=== PATIENT | female | born 1975 | race Asian ===

== ENCOUNTER 2018-11-12 12:23 | Emergency (ER) | payer MEDICAID, OTHER ==
[~2018-11-12] VITALS: Ht 132.1 cm; Wt 59.0 kg
--- NOTE | 2018-11-12 12:52 | PHYS DOC ---
Past Medical History Past Medical History: Diabetes-Type II, Hypotension Past Surgical History: Other Additional Past Surgical Histo: "" Alcohol Use: None Drug Use: None Adult General Chief Complaint Chief Complaint: HYPERTENSION HPI HPI Patient is a 42 year old female who presents with high blood pressure. The patient states she had an episode at home aren't she felt dizzy and lightheaded. She checked her blood pressure and noted the systolic to be over 200. She does take blood pressure medication every day but does not know what the names of them are. She endorses compliance. No chest pain or shortness of breath. Her symptoms have improved since coming to the ER. No recent illness. No recent travel. No dyspnea with exertion or worsening orthopnea. No fever, chills, cough. Review of Systems Review of Systems Constitutional: Denies fever or chills Eyes: Denies change in visual acuity HENT: Denies nasal congestion or sore throat Respiratory: Denies cough or shortness of breath Cardiovascular: No additional information not addressed in HPI GI: Denies abdominal pain : Denies dysuria or hematuria Musculoskeletal: Denies back pain Integument: Denies rash or skin lesions Neurologic: Denies headache, focal weakness or sensory changes All other systems were reviewed and found to be within normal limits, except as documented in this note. Allergies Allergies Allergies Coded Allergies Type Severity Reaction Last Updated Verified No Known Drug Allergies 04/21/14 No Physical Exam Physical Exam Constitutional: Well developed, well nourished, no acute distress, non-toxic appearance HENT: Normocephalic, atraumatic, bilateral external ears normal, oropharynx moist Eyes: PERRLA, EOMI, conjunctiva normal Neck: Normal range of motion, no tenderness Cardiovascular:Heart rate regular rhythm, no murmur Lungs & Thorax: Bilateral breath sounds clear to auscultation Abdomen: Bowel sounds normal, soft, no tenderness Skin: Warm, dry, no erythema Extremities: No edema Neurologic: Alert and oriented X 3, normal motor function Psychologic: Affect normal Current Patient Data Vital Signs Vital Signs Date Time Temp Pulse Resp B/P (MAP) Pulse Ox O2 Delivery O2 Flow Rate FiO2 11/12/18 15:30 80 21 97 11/12/18 12:35 98.6 192/101 (131) Room Air 98.6 Lab Values Laboratory Tests Test 11/12/18 13:05 11/12/18 13:30 12/18/18 14:15 White Blood Count 12.3 x10^3/uL (4.0-11.0) H Red Blood Count 4.57 x10^6/uL (3.50-5.40) Hemoglobin 9.2 g/dL (12.0-15.5) L Hematocrit 28.4 % (36.0-47.0) L Mean Corpuscular Volume 62 fL (79-100) L Mean Corpuscular Hemoglobin 20 pg (25-35) L Mean Corpuscular Hemoglobin Concent 32 g/dL (31-37) Red Cell Distribution Width 17.5 % (11.5-14.5) H Platelet Count 423 x10^3/uL (140-400) H Neutrophils (%) (Auto) 65 % (31-73) Lymphocytes (%) (Auto) 28 % (24-48) Monocytes (%) (Auto) 5 % (0-9) Eosinophils (%) (Auto) 2 % (0-3) Basophils (%) (Auto) 1 % (0-3) Neutrophils # (Auto) 7.9 x10^3uL (1.8-7.7) H Lymphocytes # (Auto) 3.4 x10^3/uL (1.0-4.8) Monocytes # (Auto) 0.5 x10^3/uL (0.0-1.1) Eosinophils # (Auto) 0.2 x10^3/uL (0.0-0.7) Basophils # (Auto) 0.1 x10^3/uL (0.0-0.2) Platelet Estimate Increased (ADEQUATE) Large Platelets Few Giant Platelets Occ Polychromasia Slight Hypochromasia Marked Anisocytosis Slight Microcytosis Marked Spherocytes Few Target Cells Few Sodium Level 138 mmol/L (136-145) Potassium Level 4.0 mmol/L (3.5-5.1) Chloride Level 103 mmol/L (98-107) Carbon Dioxide Level 27 mmol/L (21-32) Anion Gap 8 (6-14) Blood Urea Nitrogen 9 mg/dL (7-20) Creatinine 1.0 mg/dL (0.6-1.0) Estimated GFR (Cockcroft-Gault) 61.4 Glucose Level 314 mg/dL (70-99) H Calcium Level 9.7 mg/dL (8.5-10.1) Troponin I Quantitative < 0.017 ng/mL (0.000-0.055) JM-Wih-R-Type Natriuretic Peptide 84 pg/mL (0-124) Urine Collection Type Unknown Urine Color Yellow Urine Clarity Clear Urine pH 7.0 Urine Specific [place] 1.015 Urine Protein Negative mg/dL (NEG-TRACE) Urine Glucose (UA) >=1000 mg/dL (NEG) Urine Ketones (Stick) Negative mg/dL (NEG) Urine Blood Negative (NEG) Urine Nitrite Negative (NEG) Urine Bilirubin Negative (NEG) Urine Urobilinogen Dipstick 0.2 mg/dL (0.2 mg/dL) Urine Leukocyte Esterase Negative (NEG) Urine RBC 1-2 /HPF (0-2) Urine WBC 1-4 /HPF (0-4) Urine Squamous Epithelial Cells Many /LPF Urine Bacteria 0 /HPF (0-FEW) Laboratory Tests 11/12/18 13:05 Laboratory Tests 11/12/18 13:30 EKG EKG No STEMI Interpretation Time: 12:50 Radiology/Procedures Radiology/Procedures [] Course & Med Decision Making Course & Med Decision Making Pertinent Labs and Imaging studies reviewed. (See chart for details) Is evaluated immediately on arrival to her room. She is in no acute distress. Her subjective symptoms have improved since coming to the emergency department. Her current systolic blood pressure is 192. Her EKG does not reveal any acute findings. We'll check for signs of end organ damage with blood work and urinalysis and chest x-ray. Patient was evaluated for high blood pressure. Her blood pressure improved in the ER without intervention. Basic labs did not reveal evidence for end organ damage. The patient was feeling improved prior to discharge. She was advised to continue her current medical regimen and follow up with her primary care doctor or return to the ER for any new or worsening symptoms. Dragon Disclaimer Dragon Disclaimer This electronic medical record was generated, in whole or in part, using a voice recognition dictation system. Departure Departure Disposition: 01 HOME, SELF-CARE Condition: RADHA POLLARD DO Nov 12, 2018 12:52
[2018-11-12 13:17] LABS: BASO # 0.1 x10^3/uL (0.0-0.2); BASO % 1 % (0-3); EOS # 0.2 x10^3/uL (0.0-0.7); EOS % 2 % (0-3); HEMATOCRIT 28.4 % (36.0-47.0); HEMOGLOBIN 9.2 g/dL (12.0-15.5); LYMPH # 3.4 x10^3/uL (1.0-4.8); LYMPH % 28 % (24-48); MEAN CORPUSCULAR HEMOGLOBIN 20 pg (25-35); MEAN CORPUSCULAR HGB CONC 32 g/dL (31-37); MEAN CORPUSCULAR VOLUME 62 fL (79-100); MONO # 0.5 x10^3/uL (0.0-1.1); MONO % 5 % (0-9); NEUT # 7.9 x10^3uL (1.8-7.7); NEUT % 65 % (31-73); PLATELET COUNT 423 x10^3/uL (140-400); RED BLOOD COUNT 4.57 x10^6/uL (3.50-5.40); RED CELL DISTRIBUTION WIDTH 17.5 % (11.5-14.5); WHITE BLOOD COUNT 12.3 x10^3/uL (4.0-11.0)
--- NOTE | 2018-11-12 13:39 | EKG ---
[facility] [address] [place] [address] Test Date: 2018-11-12 Test Time: 12:48:00 Pat Name: RUSSELL TOBIAS Department: Room: Gender: F Analytical Lab Technician: : 1975 Requested By: RADHA MORA Order Number: [id number] Reading MD: Alberto Oconnor Measurements Intervals [place] Rate: 83 P: 13 IA: 128 QRS: 18 QRSD: 76 T: 20 QT: 350 QTc: 416 Interpretive Statements SINUS RHYTHM Electronically Signed On 11-13-2018 8:46:56 SCIENTIFIC ADVISOR by Alberto Oconnor
[2018-11-12 13:51] LABS: CALCIUM 9.7 mg/dL (8.5-10.1); GFR 61.4
[2018-11-12 14:37] LABS: BILIRUBIN,URINE NEGATIVE (NEG); CLARITY,URINE CLEAR; COLOR,URINE YELLOW; NITRITE,URINE NEGATIVE (NEG); PROTEIN,URINE NEGATIVE (NEG-TRACE); UROBILINOGEN,URINE 0.2 mg/dL (0.2 mg/dL)
[2018-11-12 14:47] LABS: BACTERIA,URINE 0 /HPF (0-FEW); SQUAMOUS EPITHELIAL CELL,UR MANY /LPF
[2018-11-12 14:59] LABS: ANISOCYTOSIS SLIGHT; HYPOCHROMIA MARKED; MICROCYTOSIS MARKED; PLT ESTIMATE INCREASED (ADEQUATE); POLYCHROMASIA SLIGHT; SPHEROCYTES FEW; TARGET CELLS FEW
[2018-11-12 15:30] VITALS: BP 168/79
== END 2018-11-12 15:45 | disposition home or self-care (01) ==
LOC: ER 12:23
DX: I10 Essential (primary) hypertension (principal); R42 Dizziness and giddiness; E11.9 Type 2 diabetes mellitus without complications
CPT/HCPCS: 36415; 80048; 81001; 83880; 84484; 85025; 93005; 99284

== ENCOUNTER 2019-05-22 15:39 | Emergency (ER) | payer MEDICAID ==
[~2019-05-22] VITALS: Ht 154.9 cm; Wt 59.0 kg
--- NOTE | 2019-05-22 16:13 | PHYS DOC ---
Past Medical History Past Medical History: Diabetes-Type II, Hypertension, Hypotension, Migraines (LORENASAILAJA Gonzalez APRN) Past Surgical History: Other Additional Past Surgical Histo: "" (MARYLOUSAILAJA BONILLA APRN) Alcohol Use: None Drug Use: None (CEDRICKSAILAJA SCHMIDT) Adult General Chief Complaint Chief Complaint: HEADACHE HPI HPI Patient is a 43 year old female with a history of diabetes type 2, hyperte nsion, migraine headaches, who presents to the ED today complaining a throbbing 7 out of 10 right-sided migraine headache that began this morning. Patient is also complaining of an episode of nausea and vomiting. Denies any fever. Denies any neck pain. Denies this being the worst headache in her life. She states she's had similar headaches before. She states she ran out of her blood pressure medicines a couple days ago. She is supposed to be on lisinopril. Patient's daughter interpreted for her eyak language (SAILAJA PHILIP APRN) Review of Systems Review of Systems Constitutional: Denies fever or chills [] Eyes: Denies change in visual acuity, redness, or eye pain [] HENT: Denies nasal congestion or sore throat [] Respiratory: Denies cough or shortness of breath [] Cardiovascular: No additional information not addressed in HPI [] GI: Reports nausea and vomiting. Denies abdominal pain, bloody stools or diarrhea [] : Denies dysuria or hematuria [] Musculoskeletal: Denies back pain or joint pain [] Integument: Denies rash or skin lesions [] Neurologic: Reports migraine headache, denies focal weakness or sensory changes [] All other systems were reviewed and found to be within normal limits, except as documented in this note. (LORENASAILAJA Gonzalez APRN) Current Medications Current Medications Current Medications Medications (Trade) Dose Ordered Sig/Duarte Start Time Stop Time Status Last Admin Dose Admin Clonidine HCl (Catapres) 0.1 mg 1X ONCE 05/22/19 16:15 05/22/19 16:16 DC 05/22/19 16:24 0.1 MG Dexamethasone Sodium Phosphate (Decadron) 10 mg 1X ONCE 05/22/19 16:15 05/22/19 16:15 DC Diphenhydramine HCl (Benadryl) 25 mg 1X ONCE 05/22/19 16:15 05/22/19 16:16 DC 05/22/19 16:23 25 MG Ketorolac Tromethamine (Toradol Im) 60 mg 1X ONCE 05/22/19 16:15 05/22/19 16:16 DC 05/22/19 16:23 60 MG Prochlorperazine Edisylate (Compazine) 10 mg 1X ONCE 05/22/19 16:15 05/22/19 16:16 DC 05/22/19 16:23 10 MG (LILY DIXON DO) Allergies Allergies Allergies Coded Allergies Type Severity Reaction Last Updated Verified No Known Drug Allergies 04/21/14 No (LILY DIXON DO) Physical Exam Physical Exam Constitutional: Well developed, well nourished, no acute distress, non-toxic appearance. [] HENT: Normocephalic, atraumatic, bilateral external ears normal, oropharynx moist, no oral exudates, nose normal. [] Eyes: PERRLA, EOMI, conjunctiva normal, no discharge. [] Neck: Normal range of motion, no tenderness, supple, no stridor. [] Cardiovascular:Heart rate regular rhythm, no murmur [] Lungs & Thorax: Bilateral breath sounds clear to auscultation [] Abdomen: Bowel sounds normal, soft, no tenderness, no masses, no pulsatile masses. [] Skin: Warm, dry, no erythema, no rash. [] Back: No tenderness, no CVA tenderness. [] Extremities: No tenderness, no cyanosis, no clubbing, ROM intact, no edema. [] Neurologic: Alert and oriented X 3, normal motor function, normal sensory function, no focal deficits noted. Cranial nerves II through XII intact. Psychologic: Affect normal, judgement normal, mood normal. [] (SAILAJA PHILIP APRN) Current Patient Data Vital Signs Vital Signs Date Time Temp Pulse Resp B/P (MAP) Pulse Ox O2 Delivery O2 Flow Rate FiO2 05/22/19 16:24 79 162/77 05/22/19 15:40 98.1 18 99 Room Air 98.1 (LILY DIXON DO) EKG EKG [] (SAILAJA PHILIP APRN) Radiology/Procedures Radiology/Procedures [] (SAILAJA PHILIP APRN) Course & Med Decision Making Course & Med Decision Making Pertinent Labs and Imaging studies reviewed. (See chart for details) This is a 43-year-old female patient with history of migraine headaches as well as hypertension who presents to the ED today complaining of a right-sided headache with nausea and vomiting that began this morning. Patient states this headache is consistent with her migraine headaches. She unfortunately has been out of her blood pressure medications as well. She is supposed to be on lisinopril. There is nothing unusual about her headache today. BP 166/80 with a HR of 82 She'll be given a migraine cocktail. Given prescription for lisinopril and discharged to home. (SAILAJA PHILIP APRN) Dragon Disclaimer Dragon Disclaimer This electronic medical record was generated, in whole or in part, using a voice recognition dictation system. (SAILAJA PHILIP APRN) Departure Departure Impression: Primary Impression: Migraine headache Additional Impression: Hypertension Disposition: 01 HOME, SELF-CARE Condition: STABLE Referrals: CANDY BUTLER MD (PCP) follow up in 1 week Patient Instructions: Hypertension, Migraine Headache Additional Instructions: You were evaluated in the emergency room for high blood pressure and migraine headache. Take the prescribed lisinopril as ordered and the rest of the medications as ordered. Follow-up with your own doctor as soon as you can. Scripts Lisinopril (LISINOPRIL) 10 Mg Tablet 1 TAB PO DAILY, #30 TAB 5 Refills Prov: SAILAJA PHILIP APRN 05/22/19 Cyclobenzaprine Hcl (CYCLOBENZAPRINE HCL) 10 Mg Tablet 1 TAB PO TID, #30 TAB Prov: SAILAJA PHILIP APRN 05/22/19 Diclofenac Sodium (DICLOFENAC SODIUM) 50 Mg Tablet.dr 1 TAB PO BID, #20 TAB 0 Refills Prov: SAILAJA PHILIP APRN 05/22/19 Attending Signature Attending Signature I have reviewed the [employer]'s note and plan of care. I was available for consultation as needed during the patient's visit in the emergency department. I agree with the clinical impression, plan, and disposition. (LILY DIXON DO) Problem Qualifiers Primary Impression: Migraine headache Migraine type: without aura Status migrainosus presence: without status migrainosus Intractability: not intractable Qualified Codes: G43.009 - Migraine without aura, not intractable, without status migrainosus Additional Impression: Hypertension Hypertension type: unspecified secondary hypertension Qualified Codes: I15.9 - Secondary hypertension, unspecified SAILAJA PHILIP APRN May 22, 2019 16:13 LILY DIXON DO May 22, 2019 16:48
[2019-05-22] MEDS ORDERED: diphenhydrAMINE HCL 25 MG CAPSULE PO ONE (16:15)
[2019-05-22] MEDS ORDERED: DEXAMETHASONE SOD PHOS 20 MG/5 ML VIAL. IM ONE (16:15)
[2019-05-22] MEDS ORDERED: KETOROLAC 60 MG/2 ML VIAL. IM ONE (16:15)
[2019-05-22] MEDS ORDERED: cloNIDine HCL 0.1 MG TABLET PO ONE (16:15)
[2019-05-22] MEDS ORDERED: PROCHLORPERAZINE 10 MG/2 ML VIAL. IM ONE (16:15)
[2019-05-22] MEDS ORDERED: LISI10TA2 PO (16:33)
[2019-05-22] MEDS ORDERED: DICL50TA4 PO (16:33)
[2019-05-22] MEDS ORDERED: CYCL10TA2 PO (16:33)
[2019-05-22 16:38] VITALS: BP 162/95
== END 2019-05-22 16:38 | disposition home or self-care (01) ==
LOC: ER 15:39
DX: G43.009 Migraine without aura, not intractable, without status migrainosus (principal); I15.9 Secondary hypertension, unspecified; E11.9 Type 2 diabetes mellitus without complications
CPT/HCPCS: 96372; 99284; J0780; J1885; Q0163

== ENCOUNTER 2020-01-15 08:17 | Emergency (ER) | payer MEDICAID, OTHER ==
[~2020-01-15] VITALS: Ht 152.4 cm; Wt 57.8 kg
[~2020-01-15 08:17] MED LIST: CYCL10TA2 PO; DICL50TA4 PO; LISI10TA2 PO
--- NOTE | 2020-01-15 09:59 | PHYS DOC ---
Past Medical History Past Medical History: Diabetes-Type II, Hypertension, Hypotension, Migraines Past Surgical History: Other Additional Past Surgical Histo: "" Smoking Status: Never Smoker Alcohol Use: None Drug Use: None Adult General Chief Complaint Chief Complaint: NAUSEA/VOMITING/DIARRHA HPI HPI Patient is a 44 year old female with a history of diabetes type 2, migraine headaches, hypertension, who presents to the ED today complaining of nausea, vomiting, diarrhea that began last night. Patient is also complaining of mild intermittent epigastric abdominal pain that comes on when she is about to vomit or her diarrhea. Patient denies any hematemesis or melena. Denies any exacerbating or relieving factors to her symptoms. Denies being around anyone from [place] or traveling outside [place]. Patient is Maltese speaking and interpretation is provided through crepe box tender line Review of Systems Review of Systems Constitutional: Denies fever or chills [] Eyes: Denies change in visual acuity, redness, or eye pain [] HENT: Denies nasal congestion or sore throat [] Respiratory: Denies cough or shortness of breath [] Cardiovascular: No additional information not addressed in HPI [] GI: Reports epigastric abdominal pain, vomiting and diarrhea. : Denies dysuria or hematuria [] Musculoskeletal: Denies back pain or joint pain [] Integument: Denies rash or skin lesions [] Neurologic: Denies headache, focal weakness or sensory changes [] All other systems were reviewed and found to be within normal limits, except as documented in this note. Current Medications Current Medications Current Medications Medications (Trade) Dose Ordered Sig/Duarte Start Time Stop Time Status Last Admin Dose Admin Dicyclomine HCl (Bentyl) 20 mg 1X ONCE 01/15/20 10:00 01/15/20 10:01 DC 01/15/20 10:21 20 MG Diphenoxylate HCl/ Atropine (Lomotil) 1 tab 1X ONCE 01/15/20 11:45 01/15/20 11:47 DC 01/15/20 12:02 1 TAB Famotidine (Pepcid Vial) 20 mg 1X ONCE 01/15/20 10:00 01/15/20 10:01 DC 01/15/20 10:13 20 MG Ondansetron HCl (Zofran) 4 mg 1X ONCE 01/15/20 10:00 01/15/20 10:01 DC 01/15/20 10:20 4 MG Sodium Chloride 1,000 ml @ 1,000 mls/hr 1X ONCE 01/15/20 10:00 01/15/20 10:59 DC 01/15/20 10:11 1,000 MLS/HR Allergies Allergies Allergies Coded Allergies Type Severity Reaction Last Updated Verified No Known Drug Allergies 04/21/14 No Physical Exam Physical Exam Constitutional: Well developed, well nourished, no acute distress, non-toxic appearance. [] HENT: Normocephalic, atraumatic, bilateral external ears normal, oropharynx moist, no oral exudates, nose normal. [] Eyes: PERRLA, EOMI, conjunctiva normal, no discharge. [] Neck: Normal range of motion, no tenderness, supple, no stridor. [] Cardiovascular:Heart rate regular rhythm, no murmur [] Lungs & Thorax: Bilateral breath sounds clear to auscultation [] Abdomen: Bowel sounds normal, soft, no tenderness, no masses, no pulsatile masses. [] Skin: Warm, dry, no erythema, no rash. [] Back: No tenderness, no CVA tenderness. [] Extremities: No tenderness, no cyanosis, no clubbing, ROM intact, no edema. [] Neurologic: Alert and oriented X 3, normal motor function, normal sensory function, no focal deficits noted. [] Psychologic: Affect normal, judgement normal, mood normal. [] Current Patient Data Vital Signs Vital Signs Date Time Temp Pulse Resp B/P (MAP) Pulse Ox O2 Delivery O2 Flow Rate FiO2 01/15/20 12:01 95 16 133/76 (95) 96 Room Air 01/15/20 09:50 98.8 98.8 Lab Values Laboratory Tests Test 01/15/20 10:00 01/15/20 11:00 01/15/20 11:08 White Blood Count 13.7 x10^3/uL (4.0-11.0) H Red Blood Count 5.39 x10^6/uL (3.50-5.40) Hemoglobin 11.9 g/dL (12.0-15.5) L Hematocrit 37.3 % (36.0-47.0) Mean Corpuscular Volume 69 fL (79-100) L Mean Corpuscular Hemoglobin 22 pg (25-35) L Mean Corpuscular Hemoglobin Concent 32 g/dL (31-37) Red Cell Distribution Width 14.8 % (11.5-14.5) H Platelet Count 307 x10^3/uL (140-400) Neutrophils (%) (Auto) 86 % (31-73) H Lymphocytes (%) (Auto) 9 % (24-48) L Monocytes (%) (Auto) 4 % (0-9) Eosinophils (%) (Auto) 1 % (0-3) Basophils (%) (Auto) 0 % (0-3) Neutrophils # (Auto) 11.8 x10^3/uL (1.8-7.7) H Lymphocytes # (Auto) 1.2 x10^3/uL (1.0-4.8) Monocytes # (Auto) 0.6 x10^3/uL (0.0-1.1) Eosinophils # (Auto) 0.1 x10^3/uL (0.0-0.7) Basophils # (Auto) 0.0 x10^3/uL (0.0-0.2) Platelet Estimate Pending Sodium Level 136 mmol/L (136-145) Potassium Level 4.3 mmol/L (3.5-5.1) Chloride Level 105 mmol/L (98-107) Carbon Dioxide Level 22 mmol/L (21-32) Anion Gap 9 (6-14) Blood Urea Nitrogen 10 mg/dL (7-20) Creatinine 0.9 mg/dL (0.6-1.0) Estimated GFR (Cockcroft-Gault) 68.7 BUN/Creatinine Ratio 11 (6-20) Glucose Level 165 mg/dL (70-99) H Calcium Level 9.0 mg/dL (8.5-10.1) Total Bilirubin 0.3 mg/dL (0.2-1.0) Aspartate Amino Transferase (AST) 39 U/L (15-37) H Alanine Aminotransferase (ALT) 84 U/L (14-59) H Alkaline Phosphatase 99 U/L (46-116) Total Protein 8.2 g/dL (6.4-8.2) Albumin 3.7 g/dL (3.4-5.0) Albumin/Globulin Ratio 0.8 (1.0-1.7) L Lipase 86 U/L (73-393) Urine Collection Type Void Urine Color Yellow Urine Clarity Clear Urine pH 6.0 Urine Specific [place] 1.010 Urine Protein 30 mg/dL (NEG-TRACE) Urine Glucose (UA) 100 mg/dL (NEG) Urine Ketones (Stick) Negative mg/dL (NEG) Urine Blood Negative (NEG) Urine Nitrite Negative (NEG) Urine Bilirubin Negative (NEG) Urine Urobilinogen Dipstick 0.2 mg/dL (0.2 mg/dL) Urine Leukocyte Esterase Negative (NEG) Urine RBC 0 /HPF (0-2) Urine WBC 1-4 /HPF (0-4) Urine Squamous Epithelial Cells Mod /LPF Urine Bacteria Few /HPF (0-FEW) POC Urine HCG, Qualitative Hcg negative (Negative) Laboratory Tests 01/15/20 10:00 Laboratory Tests 01/15/20 10:00 EKG EKG [] Radiology/Procedures Radiology/Procedures []PROCEDURE: ABDOMEN COMPLETE Examination: ABDOMEN COMPLETE History: Abdominal pain Comparison/Correlation: None Findings: Gallbladder is normal. Sonographic King sign is reported. No cholelithiasis. No pericholecystic fluid. Normal gallbladder wall thickness. There is infiltration of liver. Liver length is 13.1 cm longitudinal. No biliary dilatation. Right kidney measures 9.5 cm x 4.1 cm x 4.2 cm. The left kidney measures 9.7 cm x 4.1 cm x 4.6. No hydronephrosis. Renal contours and echotexture are normal. Proximal pancreas is normal. Distal pancreas is obscured by bowel gas. Spleen measures 9.8 cm longitudinal. Spleen is not well visualized. Abdominal aorta and inferior vena cava are mostly obscured by bowel gas. Impression: Sonographic King sign. No suspicious findings of the gallbladder otherwise. Fatty infiltration of the liver. Electronically signed by: Yuri Owen MD (01/15/2020 11:27 AM) [facility] DICTATED and SIGNED BY: YURI OWEN MD DATE: 01/15/201126 Course & Med Decision Making Course & Med Decision Making Pertinent Labs and Imaging studies reviewed. (See chart for details) This is a 44-year-old female patient presenting to the ED today with epigastric abdominal pain, nausea vomiting and diarrhea that began last night. Negative urine hCG, CBC with a WBC of 13.7, CMP with AST of 39, ALT 84 Abdominal ultrasound was noted for -Sonographic King sign. No suspicious findings of the gallbladder, also noted for findings liver. Patient's symptoms of well-controlled. On reevaluation she states she feels better. D/c to home. F/u with PCP and General surgeon. Freida Disclaimer Freida Disclaimer This electronic medical record was generated, in whole or in part, using a voice recognition dictation system. Departure Departure Impression: Primary Impression: Nausea and vomiting Additional Impressions: Diarrhea Transaminitis Disposition: HOME, SELF-CARE Condition: STABLE Referrals: CANDY BUTLER MD (PCP) follow up in 1-2 weeks IRWIN QUEEN MD follow up in 1-2 weeks Patient Instructions: Diarrhea, [id number], Nausea and Vomiting, [id number] Additional Instructions: You were seen for nausea, vomiting and diarrhea and abd pain. Please push fluids, maintain good hand hygiene. Follow up with the provided doctors in 1-2 weeks. Take the prescribed medicines as ordered. Scripts Diphenoxylate Hcl/Atropine (LOMOTIL TABLET) 1 Each Tablet 1 TAB PO TID, #20 TAB Prov: SAILAJA PHILIP COMPRESSED GAS PLANT WORKER 2/20/20 Dicyclomine Hcl (DICYCLOMINE HCL) 20 Mg Tablet 1 TAB PO TID, #30 TAB Prov: SAILAJA PHILIP COMPRESSED G[employer] PLANT WORKER 2/20/20 Ondansetron (ONDANSETRON ODT) 4 Mg Tab.rapdis 1 TAB PO PRN Q6-8HRS, #16 TAB Prov: SAILAJA PHILIP COMPRESSED G[employer] PLANT WORKER 2/20/20 Problem Qualifiers Primary Impression: Nausea and vomiting Vomiting type: unspecified Vomiting Intractability: non-intractable Qualified Codes: R11.2 - Nausea with vomiting, unspecified Additional Impressions: Diarrhea Diarrhea type: unspecified type Qualified Codes: R19.7 - Diarrhea, unspecified SAILAJA PHILIP COMPRESSED GAS PLANT WORKER Jan 15, 2020 09:59
[2020-01-15] MEDS ORDERED: DICYCLOMINE HCL 10 MG CAPSULE PO ONE (10:00)
[2020-01-15] MEDS ORDERED: FAMOTIDINE 20 MG/2 ML VIAL IVP ONE (10:00)
[2020-01-15] MEDS ORDERED: ONDANSETRON PF 4 MG/2 ML VIAL. IVP ONE (10:00)
[2020-01-15] MEDS ORDERED: IV NORMAL SALINE 1000ML BAG 1,000 ML IV ONE (10:00)
[2020-01-15 10:15] LABS: BASO % 0 % (0-3); EOS # 0.1 x10^3/uL (0.0-0.7); EOS % 1 % (0-3); HEMATOCRIT 37.3 % (36.0-47.0); HEMOGLOBIN 11.9 g/dL (12.0-15.5); LYMPH # 1.2 x10^3/uL (1.0-4.8); LYMPH % 9 % (24-48); MEAN CORPUSCULAR HEMOGLOBIN 22 pg (25-35); MEAN CORPUSCULAR HGB CONC 32 g/dL (31-37); MEAN CORPUSCULAR VOLUME 69 fL (79-100); MONO # 0.6 x10^3/uL (0.0-1.1); MONO % 4 % (0-9); NEUT # 11.8 x10^3/uL (1.8-7.7); NEUT % 86 % (31-73); PLATELET COUNT 307 x10^3/uL (140-400); RED BLOOD COUNT 5.39 x10^6/uL (3.50-5.40); RED CELL DISTRIBUTION WIDTH 14.8 % (11.5-14.5); WHITE BLOOD COUNT 13.7 x10^3/uL (4.0-11.0)
[2020-01-15 10:23] LABS: CREATININE 0.9 mg/dL (0.6-1.0); GFR 68.7; POTASSIUM 4.3 mmol/L (3.5-5.1)
[2020-01-15 10:29] LABS: ALBUMIN 3.7 g/dL (3.4-5.0); ALBUMIN/GLOBULIN RATIO 0.8 (1.0-1.7); TOTAL BILIRUBIN 0.3 mg/dL (0.2-1.0); TOTAL PROTEIN 8.2 g/dL (6.4-8.2)
[2020-01-15 11:19] LABS: BILIRUBIN,URINE NEGATIVE (NEG); CLARITY,URINE CLEAR; COLOR,URINE YELLOW; NITRITE,URINE NEGATIVE (NEG); PROTEIN,URINE 30 mg/dL (NEG-TRACE); UROBILINOGEN,URINE 0.2 mg/dL (0.2 mg/dL)
--- NOTE | 2020-01-15 11:30 | RAD ---
Examination: ABDOMEN COMPLETE History: Abdominal pain Comparison/Correlation: None Findings: Gallbladder is normal. Sonographic King sign is reported. No cholelithiasis. No pericholecystic fluid. Normal gallbladder wall thickness. There is infiltration of liver. Liver length is 13.1 cm longitudinal. No biliary dilatation. Right kidney measures 9.5 cm x 4.1 cm x 4.2 cm. The left kidney measures 9.7 cm x 4.1 cm x 4.6. No hydronephrosis. Renal contours and echotexture are normal. Proximal pancreas is normal. Distal pancreas is obscured by bowel gas. Spleen measures 9.8 cm longitudinal. Spleen is not well visualized. Abdominal aorta and inferior vena cava are mostly obscured by bowel gas. Impression: Sonographic King sign. No suspicious findings of the gallbladder otherwise. Fatty infiltration of the liver. Electronically signed by: Yuri Burk MD (01/15/2020 11:27 AM) [facility]
[2020-01-15 11:38] LABS: SQUAMOUS EPITHELIAL CELL,UR MOD /LPF
[2020-01-15 11:39] LABS: BACTERIA,URINE FEW /HPF (0-FEW); RBC,URINE 0 /HPF (0-2)
[2020-01-15] MEDS ORDERED: DIPHENOXYLATE/ATROPINE TABLET. PO ONE (11:45)
[2020-01-15 12:01] VITALS: BP 133/76
[2020-01-15] MEDS ORDERED: DICY20TA3 PO (12:19)
[2020-01-15] MEDS ORDERED: ONDA4TAB12 PO (12:19)
[2020-01-15] MEDS ORDERED: DIPH1TAB PO ×2 (12:19→12:22)
[2020-01-15 12:21] LABS: % EOS 1 % (0-5); % LYMPHS 12 % (24-48); % MONOS 6 % (0-10); % SEGS 81 % (35-66); ANISOCYTOSIS SLIGHT; HYPOCHROMIA SLIGHT; MICROCYTOSIS SLIGHT; PLT ESTIMATE ADEQUATE (ADEQUATE); TARGET CELLS OCC
== END 2020-01-15 12:35 | disposition home or self-care (01) ==
LOC: ER 08:17
DX: R11.2 Nausea with vomiting, unspecified (principal); R19.7 Diarrhea, unspecified; R10.13 Epigastric pain; R74.0 Nonspecific elevation of levels of transaminase and lactic acid dehydrogenase [LDH]; E11.9 Type 2 diabetes mellitus without complications; I10 Essential (primary) hypertension; G43.909 Migraine, unspecified, not intractable, without status migrainosus
CPT/HCPCS: 36415; 76700; 80053; 81001; 81025; 83690; 85007; 85025; 87045; 87493; 96361; 96374; 96375; 99284; J2405; J3490; J7030

== ENCOUNTER 2020-11-06 19:27 | Emergency (ER) | payer OTHER ==
[~2020-11-06] VITALS: Ht 149.9 cm; Wt 140.0 kg
[~2020-11-06 19:27] MED LIST changes: +DICY20TA3 PO; +DIPH1TAB PO; +ONDA4TAB12 PO
[2020-11-06 19:31] VITALS: BP 156/98
[2020-11-06] MEDS ORDERED: PROCHLORPERAZINE 5 MG TABLET. PO STA (20:24)
[2020-11-06] MEDS ORDERED: methylPREDNISolone SOD SUCC PF 125 MG/2 ML VIAL. IV ONE (20:30)
[2020-11-06] MEDS ORDERED: methylPREDNISolone SOD SUCC PF 125 MG/2 ML VIAL. IM ONE (20:30)
[2020-11-06] MEDS ORDERED: diphenhydrAMINE HCL 25 MG CAPSULE PO ONE (20:30)
--- NOTE | 2020-11-06 21:10 | RAD ---
Exam: CT head INDICATION: Headache TECHNIQUE: Sequential axial images through the head were obtained without the administration of IV co ntrast. Comparisons: None FINDINGS: No focal parenchymal lesion or hemorrhage is identified. There is no midline shift or sulcal effaceme nt. No acute vascular territory infarction is identified. Clark-white distinction is preserved. The ventricular system is within normal limits without compression hydrocephalus. The basal cisterns are well maintained. The visualized portions of the paranasal sinuses and mastoid air cells are well-pneumatized. No acute fractures. IMPRESSION: No acute intracranial abnormality. Exposure: One or more of the following in the visualized dose reduction techniques were utilized for this examination: 1. Automated exposure control 2. Adjustment of the MA and/or KV according to patient size Use of iterative of reconstructive technique Electronically signed by: Valentina Cyr MD (11/06/2020 9:08 PM) [facility]
[2020-11-06] MEDS ORDERED: PROM25TA10 PO (21:33)
[2020-11-06] MEDS ORDERED: SUMA50TA3 PO (21:33)
--- NOTE | 2020-11-06 21:34 | PHYS DOC ---
Past Medical History Past Medical History: Diabetes-Type II, High Cholesterol, Hypertension, H ypotension, Migraines Past Surgical History: Tubal ligation, Other Additional Past Surgical Histo: "" Smoking Status: Never Smoker Alcohol Use: None Drug Use: None General Adult EDM: Chief Complaint: HEADACHE HPI: HPI: Patient is a 44 year old female with a history of diabetes type 2, hypertension, high cholesterol, migraine headaches, who presents to the ED today complaining of a 9 out of 10 frontal headache intermittently for 3 days. She states noise and lights exacerbates the headache. She states she has had similar headaches before. Denies any nausea, vomiting. Denies this being the worst headache in her life. She states she took Tylenol with minimal relief. Patient is Maori speaking interpretation is provided by the daughter Review of Systems: Review of Systems: Constitutional: Denies fever or chills. [] Eyes: Denies change in visual acuity. [] HENT: Denies nasal congestion or sore throat. [] Respiratory: Denies cough or shortness of breath. [] Cardiovascular: Denies chest pain or edema. [] GI: Denies abdominal pain, nausea, vomiting, bloody stools or diarrhea. [] : Denies dysuria. [] Musculoskeletal: Denies back pain or joint pain. [] Integument: Denies rash. [] Neurologic: Reports frontal headache, denies focal weakness or sensory changes. [] Psychiatric: Denies depression or anxiety. [] Heart Score: Risk Factors: Risk Factors: DM, Current or recent (<one month) smoker, HTN, HLP, family history of CAD, obesity. Risk Scores: Score 0 - 3: 2.5% MACE over next 6 weeks - Discharge Home Score 4 - 6: 20.3% MACE over next 6 weeks - Admit for Clinical Observation Score 7 - 10: 72.7% MACE over next 6 weeks - Early Invasive Strategies Current Medications: Current Medications Medications (Trade) Dose Ordered Sig/Duarte Start Time Stop Time Status Last Admin Dose Admin Diphenhydramine HCl (Benadryl) 25 mg 1X ONCE 11/06/20 20:30 11/06/20 20:49 DC 11/06/20 20:57 25 MG Methylprednisolone Sodium Succinate (SOLU-Medrol 125MG VIAL) 125 mg 1X ONCE 11/06/20 20:30 11/06/20 20:49 DC 11/06/20 20:58 125 MG Prochlorperazine Maleate (Compazine) 10 mg 1X STAT 11/06/20 20:24 11/06/20 20:49 DC 11/06/20 20:57 10 MG Allergies: Allergies: Allergies Coded Allergies Type Severity Reaction Last Updated Verified No Known Drug Allergies 04/21/14 No Physical Exam: PE: Constitutional: Well developed, well nourished, no acute distress, non-toxic appearance. [] HENT: Normocephalic, atraumatic, bilateral external ears normal, oropharynx moist, no oral exudates, nose normal. [] Eyes: PERRLA, EOMI, conjunctiva normal, no discharge. [] Neck: Normal range of motion, no tenderness, supple, no stridor. [] Cardiovascular:Heart rate regular rhythm, no murmur [] Lungs & Thorax: Bilateral breath sounds clear to auscultation [] Abdomen: Bowel sounds normal, soft, no tenderness, no masses, no pulsatile masses. [] Skin: Warm, dry, no erythema, no rash. [] Back: No tenderness, no CVA tenderness. [] Extremities: No tenderness, no cyanosis, no clubbing, ROM intact, no edema. [] Neurologic: Alert and oriented X 3, normal motor function, normal sensory function, no focal deficits noted. Cranial nerves II through XII intact. Psychologic: Affect normal, judgement normal, mood normal. [] Current Patient Data: Vital Signs: Vital Signs Date Time Temp Pulse Resp B/P (MAP) Pulse Ox O2 Delivery O2 Flow Rate FiO2 11/06/20 19:31 98.7 98 16 156/98 (117) 94 Room Air 98.7 EKG: EKG: [] Radiology/Procedures: Radiology/Procedures: []PROCEDURE: CT HEAD WO CONTRAST Exam: CT head INDICATION: Headache TECHNIQUE: Sequential axial images through the head were obtained without the administration of IV contrast. Comparisons: None FINDINGS: No focal parenchymal lesion or hemorrhage is identified. There is no midline shift or sulcal effacement. No acute vascular territory infarction is identified. Clark-white distinction is preserved. The ventricular system is within normal limits without compression hydrocephalus. The basal cisterns are well maintained. The visualized portions of the paranasal sinuses and mastoid air cells are well- pneumatized. No acute fractures. IMPRESSION: No acute intracranial abnormality. Exposure: One or more of the following in the visualized dose reduction techniques were utilized for this examination: 1. Automated exposure control 2. Adjustment of the MA and/or KV according to patient size Use of iterative of reconstructive technique Electronically signed by: Valentina Crisostomo MD (11/06/2020 9:08 PM) [facility] DICTATED and SIGNED BY: VALENTINA CRISOSTOMO MD DATE: 11/06/20 [id number] 0 Course & Med Decision Making: Course & Med Decision Making Pertinent Labs and Imaging studies reviewed. (See chart for details) This is a 44-year-old female patient with history of migraine headaches presenting today complaining of 9 out of 10 frontal headache intermittently for [address] of the head is negative for any acute findings. Blood pressure when I saw patient was 140/80. Patient was given Compazine Benadryl and Solu-Medrol with good relief of her symptoms. She was discharged to home. Follow-up with her PCP next week. Maryon Disclaimer: Freida Disclaimer: This electronic medical record was generated, in whole or in part, using a voice recognition dictation system. Departure Departure Impression: Primary Impression: Migraine headache Qualified Codes: G43.909 - Migraine, unspecified, not intractable, without status migrainosus Disposition: 01 DC HOME SELF CARE/HOMELESS Condition: STABLE Referrals: CANDY BUTLER MD (PCP) Follow-up next week Patient Instructions: Migraine Headache, [id number] Additional Instructions: You were evaluated in the emergency room for headache. Please follow-up with your doctor next week. Take the prescribed medication as needed for your headaches. Come back to the ED at any point symptoms worsen. Scripts Promethazine Hcl (PROMETHAZINE HCL) 25 Mg Tablet 1 TAB PO PRN Q6HRS, #20 TAB Prov: LORENAASAILAJA LOW VOLTAGE TECHNICIAN 11/06/20 Sumatriptan Succinate (IMITREX) 50 Mg Tablet 1 TAB PO UD, #9 TAB 1 Refill Prov: LORENAASAILAJA LOW VOLTAGE TECHNICIAN 11/06/20 SAILAJA PHILIP LOW VOLTAGE TECHNICIAN Nov 06, 2020 21:34
== END 2020-11-06 21:50 | disposition home or self-care (01) ==
LOC: ER 19:27
DX: G43.909 Migraine, unspecified, not intractable, without status migrainosus (principal); E11.9 Type 2 diabetes mellitus without complications; E78.00 Pure hypercholesterolemia, unspecified; I10 Essential (primary) hypertension; Z98.51 Tubal ligation status; Z98.890 Other specified postprocedural states
CPT/HCPCS: 70450; 96372; 99284; J2930; Q0163; Q0164

== ENCOUNTER 2020-11-10 11:17 | Emergency (ER) | payer OTHER ==
[~2020-11-10] VITALS: Ht 152.4 cm; Wt 66.0 kg
[~2020-11-10 11:17] MED LIST changes: +PROM25TA10 PO; +SUMA50TA3 PO
[2020-11-10] MEDS ORDERED: PROMETHAZINE 12.5 MG TABLET. PO STA (13:27)
[2020-11-10] MEDS ORDERED: diphenhydrAMINE HCL 25 MG CAPSULE PO ONE (13:30)
[2020-11-10] MEDS ORDERED: methylPREDNISolone SOD SUCC PF 125 MG/2 ML VIAL. IM ONE (13:30)
[2020-11-10] MEDS ORDERED: KETOROLAC 60 MG/2 ML VIAL. IM ONE (13:30)
--- NOTE | 2020-11-10 13:38 | PHYS DOC ---
Past Medical History Past Medical History: Diabetes-Type II, High Cholesterol, Hypertension, H ypotension, Migraines (SAILAJA PHILIP APRN) Past Surgical History: Tubal ligation, Other Additional Past Surgical Histo: "" (SAILAJA PHILIP APRN) Smoking Status: Never Smoker Alcohol Use: None Drug Use: None (SAILAJA PHILIP APRN) General Adult EDM: Chief Complaint: HEADACHE HPI: HPI: Patient is a 44 year old female with history of diabetes, hypertension, high cholesterol, migraine headaches, who presents to the ED today complaining of 10 out of 10 frontal headache intermittently for 4 days. Patient denies any photophobia, nausea vomiting. Denies any exacerbating or relieving factors to her symptoms. She was seen in the ED 4 days ago for the same complaints and had a negative CT of the head. Patient is Romanian speaking, is interpreting. I did have a chance to speak to patient's daughter on the phone who stated patient and were told they can be seen by the PCP Dr. Mart in 2 months, they do not like the wait and decided to come back to the ED. The daughter states patient and father are very unreasonable in terms of hospital visits. (SAILAJA PHILIP APRN) Review of Systems: Review of Systems: Constitutional: Denies fever or chills. [] Eyes: Denies change in visual acuity. [] HENT: Denies nasal congestion or sore throat. [] Respiratory: Denies cough or shortness of breath. [] Cardiovascular: Denies chest pain or edema. [] GI: Denies abdominal pain, nausea, vomiting, bloody stools or diarrhea. [] : Denies dysuria. [] Musculoskeletal: Denies back pain or joint pain. [] Integument: Denies rash. [] Neurologic: Reports headache, denies focal weakness or sensory changes. [] Psychiatric: Denies depression or anxiety. [] (SAILAJA PHILIP APRN) Heart Score: Risk Factors: Risk Factors: DM, Current or recent (<one month) smoker, HTN, HLP, family history of CAD, obesity. Risk Scores: Score 0 - 3: 2.5% MACE over next 6 weeks - Discharge Home Score 4 - 6: 20.3% MACE over next 6 weeks - Admit for Clinical Observation Score 7 - 10: 72.7% MACE over next 6 weeks - Early Invasive Strategies (SAILAJA PHILIP APRN) Allergies: Allergies: Allergies Coded Allergies Type Severity Reaction Last Updated Verified No Known Drug Allergies 04/21/14 No (SAILAJA PHILIP APRN) Physical Exam: PE: Constitutional: Well developed, well nourished, no acute distress, non-toxic appearance. [] HENT: Normocephalic, atraumatic, bilateral external ears normal, oropharynx moist, no oral exudates, nose normal. [] Eyes: PERRLA, EOMI, conjunctiva normal, no discharge. [] Neck: Normal range of motion, no tenderness, supple, no stridor. [] Cardiovascular:Heart rate regular rhythm, no murmur [] Lungs & Thorax: Bilateral breath sounds clear to auscultation [] Abdomen: Bowel sounds normal, soft, no tenderness, no masses, no pulsatile masses. [] Skin: Warm, dry, no erythema, no rash. [] Back: No tenderness, no CVA tenderness. [] Extremities: No tenderness, no cyanosis, no clubbing, ROM intact, no edema. [] Neurologic: Alert and oriented X 3, normal motor function, normal sensory function, no focal deficits noted. Cranial nerves II through XII intact Psychologic: Flat affect, depressed mood (SAILAJA PHILIP APRN) Current Patient Data: Vital Signs: Vital Signs Date Time Temp Pulse Resp B/P (MAP) Pulse Ox O2 Delivery O2 Flow Rate FiO2 11/10/20 11:42 98.5 122 20 96 98.5 (SAILAJA PHILIP APRN) EKG: EKG: [] (SAILAJA PHILIP APRN) Radiology/Procedures: Radiology/Procedures: [] (SAILAJA PHILIP APRN) Course & Med Decision Making: Course & Med Decision Making Pertinent Labs and Imaging studies reviewed. (See chart for details) This is a 44-year-old female patient presenting to the ED today with a headache for 4 days. Patient was seen in the ED 4 days ago for the same complaint and had a negative CT of the head. See HPI for more information. It sounds like this patient and her are not willing to wait for an appointment from the PCP and keep coming back to the ED. her blood pressure is one 127/86 This time she will be tested for COVID-19. Patient was given migraine headache cocktail. Feeling better. Discharge to home. Provided another doctor's list for follow-up. You were evaluated in the emergency room for headache. Take the prescribed medication as needed for symptoms. Follow-up with your doctor in the next 1 to 2 weeks or the provided doctor. (SAILAJA PHILIP APRN) Dragon Disclaimer: Dragon Disclaimer: This electronic medical record was generated, in whole or in part, using a voice recognition dictation system. (SAILAJA PHILIP APRN) Departure Departure Impression: Primary Impression: Migraine headache Qualified Codes: G43.009 - Migraine without aura, not intractable, without status migrainosus Additional Impression: Person under investigation for COVID-19 Disposition: DC HOME SELF CARE/HOMELESS Condition: STABLE Referrals: CANDY BUTLER MD (PCP) Follow-up in 1 to 2 weeks KVNG JUAN MD follow up in 1-2 weeks Patient Instructions: Migraine Headache, [id number] Additional Instructions: You were evaluated in the emergency room. Please consider following up with your primary care doctor and one of the provided specialist. Scripts Sumatriptan Succinate (IMITREX) 100 Mg Tablet 1 TAB PO UD, #9 TAB 5 Refills Take 1 tablet at the onset of your symptoms, repeat in 2 hours if headache persist. Do not take more than 2 tablets in 24 hours Prov: SAILAJA PHILIP APRN 11/10/20 Attending Signature Attending Signature I have reviewed the PA/TRUCK GREASER's note and plan of care. I was available for consultation as needed during the patient's visit in the emergency department. I agree with the clinical impression, plan, and disposition. (LILY DIXON DO) SAILAJA PHILIP APRN Nov 10, 2020 13:38 LILY DIXON DO Nov 10, 2020 18:54
[2020-11-10] MEDS ORDERED: SUMA100T3 PO (15:09)
[2020-11-10 15:50] VITALS: BP 153/78
--- NOTE | 2020-11-12 10:26 | NUR ---
IP: Informed pt of positive COVID test and the need to quarantine for 14 days. Pt verbalized understandding but did have slight language barrier.
== END 2020-11-10 16:26 | disposition home or self-care (01) ==
LOC: ER 11:17
DX: U07.1 COVID-19 (principal); G43.009 Migraine without aura, not intractable, without status migrainosus; E11.9 Type 2 diabetes mellitus without complications; E78.00 Pure hypercholesterolemia, unspecified; I10 Essential (primary) hypertension
CPT/HCPCS: 82962; 96372; 99285; C9803; J1885; J2930; Q0163; Q0169; U0003

== ENCOUNTER 2022-01-02 03:37 | Emergency (ER) | payer OTHER ==
[~2022-01-02] VITALS: Ht 132.1 cm; Wt 50.0 kg
[~2022-01-02 03:37] MED LIST changes: +CYCL10TA19 PO; -CYCL10TA2 PO; +DICY20TA PO; -DICY20TA3 PO; +LISI10TA16 PO; -LISI10TA2 PO; +SUMA100T3 PO
--- NOTE | 2022-01-02 04:08 | ED.ADGEN ---
Past Medical History Past Medical History: Diabetes-Type II, High Cholesterol, Hypertension, Hypotension, Migraines Past Surgical History: Tubal ligation, Other Additional Past Surgical Histo: "" Smoking Status: Never Smoker Alcohol Use: None Drug Use: None General Adult EDM: Chief Complaint: FLANK PAIN HPI: HPI: Patient is a 46 year old female coming in for 2-3 days of right flank pain. Patient says the pain is burning is also burning with urination. Denies any fevers, cough, vomiting or diarrhea. No sick contacts. Patient denies any history of kidney stones or infection. She has a history of type 1 diabetes and hypertension., No surgical history, and has had her Covid vaccines. Review of Systems: Review of Systems: All other systems within normal limits except for as noted in the HPI Current Medications: Current Medications Medications (Trade) Dose Ordered Sig/Duarte Start Time Stop Time Status Last Admin Dose Admin Acetaminophen (Tylenol) 1,000 mg 1X ONCE 01/02/22 04:15 01/02/22 04:16 DC 01/02/22 04:22 1,000 MG Ceftriaxone Sodium (Rocephin) 1 gm 1X ONCE 01/02/22 05:15 01/02/22 05:16 DC 01/02/22 05:19 1 GM Fentanyl Citrate (Fentanyl 2ml Vial) 75 mcg 1X ONCE 01/02/22 04:15 01/02/22 04:16 DC 01/02/22 04:23 75 MCG Info (CONTRAST GIVEN -- Rx MONITORING) 1 each PRN DAILY PRN 01/02/22 04:45 01/04/22 04:44 Iohexol (Omnipaque 300 Mg/ml) 60 ml 1X ONCE 01/02/22 04:45 01/02/22 04:46 DC 01/02/22 04:58 60 ML Ketorolac Tromethamine (Toradol 15mg Vial) 15 mg 1X ONCE 01/02/22 05:30 01/02/22 05:31 Sodium Chloride 500 ml @ 500 mls/hr 1X ONCE 01/02/22 04:15 01/02/22 05:14 DC 01/02/22 04:22 500 MLS/HR Allergies: Allergies: Allergies Coded Allergies Type Severity Reaction Last Updated Verified No Known Drug Allergies 01/02/22 No Physical Exam: PE: Constitutional: Well developed, well nourished, no acute distress, non-toxic appearance. [] HENT: Normocephalic, atraumatic, bilateral external ears normal, nose normal. [] Eyes: PERRLA, conjunctiva normal, no discharge. [] Neck: No rigidity, supple, no stridor. [] Cardiovascular: Regular rate and rhythm, brisk cap refill [] Lungs & Thorax: Non labored symmetric respirations, no tachypnea or respiratory distress [] Abdomen: Soft, nondistended, right abdominal tender, right flank. Skin: Warm, dry, no erythema, no rash. [] Back: Unremarkable, right CVA tenderness Extremities: No deformities, range of motion grossly intact, no lower extremity edema [] Neurologic: Alert and oriented X 3, no focal deficits noted. [] Psychologic: Affect normal, judgement normal, mood normal. [] Current Patient Data: Labs: Laboratory Tests Test 01/02/22 04:00 01/02/22 04:07 White Blood Count 16.0 x10^3/uL (4.0-11.0) H Red Blood Count 4.23 x10^6/uL (3.50-5.40) Hemoglobin 9.6 g/dL (12.0-15.5) L Hematocrit 30.4 % (36.0-47.0) L Mean Corpuscular Volume 72 fL (79-100) L Mean Corpuscular Hemoglobin 23 pg (25-35) L Mean Corpuscular Hemoglobin Concent 32 g/dL (31-37) Red Cell Distribution Width 14.5 % (11.5-14.5) Platelet Count 246 x10^3/uL (140-400) Neutrophils (%) (Auto) 74 % (31-73) H Lymphocytes (%) (Auto) 17 % (24-48) L Monocytes (%) (Auto) 6 % (0-9) Eosinophils (%) (Auto) 2 % (0-3) Basophils (%) (Auto) 1 % (0-3) Neutrophils # (Auto) 11.9 x10^3/uL (1.8-7.7) H Lymphocytes # (Auto) 2.8 x10^3/uL (1.0-4.8) Monocytes # (Auto) 0.9 x10^3/uL (0.0-1.1) Eosinophils # (Auto) 0.3 x10^3/uL (0.0-0.7) Basophils # (Auto) 0.1 x10^3/uL (0.0-0.2) Platelet Estimate Adequate (ADEQUATE) Hypochromasia Mod Microcytosis Mod Spherocytes Occ Urine Collection Type Unknown Urine Color Yellow Urine Clarity Clear Urine pH 7.0 (<5.0-8.0) Urine Specific [place] 1.020 (1.000-1.030) Urine Protein 100 mg/dL (NEG-TRACE) Urine Glucose (UA) >=1000 mg/dL (NEG) Urine Ketones (Stick) Negative mg/dL (NEG) Urine Blood Small (NEG) Urine Nitrite Negative (NEG) Urine Bilirubin Negative (NEG) Urine Urobilinogen Dipstick 0.2 mg/dL (0.2 mg/dL) Urine Leukocyte Esterase Moderate (NEG) Urine RBC 3-5 /HPF (0-2) Urine WBC Tntc /HPF (0-4) Urine Squamous Epithelial Cells Few /LPF Urine Bacteria Few /HPF (0-FEW) Urine Mucus Slight /LPF Sodium Level 138 mmol/L (136-145) Potassium Level 4.1 mmol/L (3.5-5.1) Chloride Level 100 mmol/L (98-107) Carbon Dioxide Level 27 mmol/L (21-32) Anion Gap 11 (6-14) Blood Urea Nitrogen 13 mg/dL (7-20) Creatinine 1.1 mg/dL (0.6-1.0) H Estimated GFR (Cockcroft-Gault) 54.0 BUN/Creatinine Ratio 12 (6-20) Glucose Level 408 mg/dL (70-99) H Calcium Level 9.2 mg/dL (8.5-10.1) Total Bilirubin 0.3 mg/dL (0.2-1.0) Aspartate Amino Transferase (AST) 21 U/L (15-37) Alanine Aminotransferase (ALT) 67 U/L (14-59) H Alkaline Phosphatase 121 U/L (46-116) H Total Protein 8.1 g/dL (6.4-8.2) Albumin 3.1 g/dL (3.4-5.0) L Albumin/Globulin Ratio 0.6 (1.0-1.7) L Lipase 91 U/L (73-393) POC Urine HCG, Qualitative Hcg negative (Negative) Laboratory Tests 01/02/22 04:00 Laboratory Tests 01/02/22 04:00 Vital Signs: Vital Signs Date Time Temp Pulse Resp B/P (MAP) Pulse Ox O2 Delivery O2 Flow Rate FiO2 01/02/22 05:18 102 16 141/72 (95) 99 Room Air 01/02/22 04:06 102.0 102.0 EKG: EKG: [] Heart Score: C/O Chest Pain: No Risk Factors: Risk Factors: DM, Current or recent (<one month) smoker, HTN, HLP, family history of CAD, obesity. Risk Scores: Score 0 - 3: 2.5% MACE over next 6 weeks - Discharge Home Score 4 - 6: 20.3% MACE over next 6 weeks - Admit for Clinical Observation Score 7 - 10: 72.7% MACE over next 6 weeks - Early Invasive Strategies Radiology/Procedures: Radiology/Procedures: [facility] [address] [place] [address] IMAGING REPORT Signed PATIENT: RUSSELL TOBIAS ACCOUNT: [id number] : 1975 LOCATION: ER AGE: 46 SEX: F EXAM STATUS: REG ER ORD. PHYSICIAN: JONEL WALDEN MD REASON: Right flank and abd pain, OMNI 300 60 ML IV PROCEDURE: CT ABD PELV W/ IV CONTRST ONLY CT OF THE ABDOMEN AND PELVIS WITH IV CONTRAST. History: Reason: Right flank and abd pain Comparison:None. Procedure: Contiguous axial images of the abdomen and pelvis were performed after the administration of 60 cc of Omni 300 IV contrast. Oral contrast: No. Findings: The gallbladder appears normal. The appendix appears normal. Liver: Unremarkable Spleen: Unremarkable Pancreas: Unremarkable Adrenal Glands: Unremarkable Kidneys: Unremarkable There is no mass or lymphadenopathy. There is no free air. There is no free fluid. The urinary bladder is seen with [id number] wall thickening.. Impression: Wall thickening or bladder could be hypertrophy or could be cystitis. End Impression PQRS Compliance Statement: One or more of the following individualized dose reduction techniques were utilized for this examination: 1. Automated exposure control 2. Adjustment of the mA and/or kV according to patient size 3. Use of iterative reconstruction technique Electronically signed by: Rebecca Washburn III, MD (01/02/2022 5:02 AM) [facility] DICTATED and SIGNED BY: REBECCA WASHBURN III, MD DATE: 01/02/22 [id number] [] Course & Med Decision Making: Course & Med Decision Making Pertinent Labs and Imaging studies reviewed. (See chart for details) [] Dragon Disclaimer: Dragon Disclaimer: This electronic medical record was generated, in whole or in part, using a voice recognition dictation system. Departure Departure Impression: Primary Impression: Pyelonephritis Disposition: HOME / SELF CARE / HOMELESS Condition: STABLE Referrals: CANDY BUTLER MD (PCP) Patient Instructions: Pyelonephritis, Adult, [id number] Additional Instructions: Return to emergency department if symptoms are not improving in 48 hours, having high fevers, or vomiting when trying to take medications. Can also take Tylenol and ibuprofen for pain and fevers, do not exceed a total of 300 mg of Tylenol per day when combined with your hydrocodone's. Scripts Cephalexin (CEPHALEXIN) 500 Mg Tablet 2 TAB PO BID for antibiotic for 14 Days, #56 TAB Prov: JONEL WALDEN MD 01/02/22 Hydrocodone Bit/Acetaminophen (HYDROCODONE-APAP 5-325 ) 1 Tab Tablet 1 TAB PO PRN Q6HRS PRN for PAIN for 2 Days, #8 TAB 0 Refills Prov: JONEL WALDEN MD 01/02/22 JONEL WALDEN MD Jan 02, 2022 04:08
[2022-01-02 04:13] LABS: BASO # 0.1 x10^3/uL (0.0-0.2); BASO % 1 % (0-3); EOS # 0.3 x10^3/uL (0.0-0.7); EOS % 2 % (0-3); HEMATOCRIT 30.4 % (36.0-47.0); HEMOGLOBIN 9.6 g/dL (12.0-15.5); LYMPH # 2.8 x10^3/uL (1.0-4.8); LYMPH % 17 % (24-48); MEAN CORPUSCULAR HEMOGLOBIN 23 pg (25-35); MEAN CORPUSCULAR HGB CONC 32 g/dL (31-37); MEAN CORPUSCULAR VOLUME 72 fL (79-100); MONO # 0.9 x10^3/uL (0.0-1.1); MONO % 6 % (0-9); NEUT # 11.9 x10^3/uL (1.8-7.7); NEUT % 74 % (31-73); PLATELET COUNT 246 x10^3/uL (140-400); RED BLOOD COUNT 4.23 x10^6/uL (3.50-5.40); RED CELL DISTRIBUTION WIDTH 14.5 % (11.5-14.5)
[2022-01-02] MEDS ORDERED: ACETAMINOPHEN 500 MG TABLET PO ONE (04:15)
[2022-01-02] MEDS ORDERED: IV NORMAL SALINE 500ML BAG 500 ML IV ONE (04:15)
[2022-01-02] MEDS ORDERED: fentaNYL PF VIAL 100 MCG/2 ML VIAL IVP ONE (04:15)
[2022-01-02 04:17] LABS: BILIRUBIN,URINE NEGATIVE (NEG); CLARITY,URINE CLEAR; COLOR,URINE YELLOW; NITRITE,URINE NEGATIVE (NEG); PROTEIN,URINE 100 mg/dL (NEG-TRACE); UROBILINOGEN,URINE 0.2 mg/dL (0.2 mg/dL)
[2022-01-02 04:22] LABS: BACTERIA,URINE FEW /HPF (0-FEW); CALCIUM 9.2 mg/dL (8.5-10.1); CREATININE 1.1 mg/dL (0.6-1.0); POTASSIUM 4.1 mmol/L (3.5-5.1); WBC,URINE TNTC /HPF (0-4)
[2022-01-02 04:28] LABS: ALBUMIN 3.1 g/dL (3.4-5.0); ALBUMIN/GLOBULIN RATIO 0.6 (1.0-1.7); TOTAL BILIRUBIN 0.3 mg/dL (0.2-1.0); TOTAL PROTEIN 8.1 g/dL (6.4-8.2)
[2022-01-02] MEDS ORDERED: CONTRAST GIVEN. MC PRN (04:45)
[2022-01-02] MEDS ORDERED: IOHEXOL 300 MG/ML 100ML VIAL. IV ONE (04:45)
[2022-01-02 04:46] LABS: PLT ESTIMATE ADEQUATE (ADEQUATE)
[2022-01-02 04:47] LABS: HYPOCHROMIA MOD; MICROCYTOSIS MOD; SPHEROCYTES OCC
--- NOTE | 2022-01-02 05:04 | RAD ---
CT OF THE ABDOMEN AND PELVIS WITH IV CONTRAST. History: Reason: Right flank and abd pain Comparison:None. Procedure: Contiguous axial images of the abdomen and pelvis were performed after the administration of 60 cc o f Omni 300 IV contrast. Oral contrast: No. Findings: The gallbladder appears normal. The appendix appears normal. Liver: Unremarkable Spleen: Unremarkable Pancreas: Unremarkable Adrenal Glands: Unremarkable Kidneys: Unremarkable There is no mass or lymphadenopathy. There is no free air. There is no free fluid. The urinary bladder is seen with [id number] wall thickening.. Impression: Wall thickening or bladder could be hypertrophy or could be cystitis. End Impression PQRS Compliance Statement: One or more of the following individualized dose reduction techniques were utilized for this examinat ion: 1. Automated exposure control 2. Adjustment of the mA and/or kV according to patient size 3. Use of iterative reconstruction technique Electronically signed by: Kishore Amor III, MD (01/02/2022 5:02 AM) [facility]
[2022-01-02] MEDS ORDERED: cefTRIAXone IV Push 1 GM VIAL. IVP ONE (05:15)
[2022-01-02 05:18] VITALS: BP 141/72
[2022-01-02] MEDS ORDERED: CEPH500T PO (05:26)
[2022-01-02] MEDS ORDERED: HYDR-2761 PO (05:26)
[2022-01-02] MEDS ORDERED: KETOROLAC 15 MG/ML VIAL. IVP ONE (05:30)
== END 2022-01-02 05:45 | disposition home or self-care (01) ==
LOC: ER 04:31
DX: N12 Tubulo-interstitial nephritis, not specified as acute or chronic (principal); E11.9 Type 2 diabetes mellitus without complications; E78.00 Pure hypercholesterolemia, unspecified; I10 Essential (primary) hypertension; G43.909 Migraine, unspecified, not intractable, without status migrainosus; Z98.51 Tubal ligation status
CPT/HCPCS: 36415; 74177; 80053; 81001; 81025; 83690; 85025; 87086; 96361; 96374; 96375; 99285; J0696; J1885; J3010; J7040; Q9967; 87077; 87186